=== PATIENT | female | born 1990 | race Caucasian/White ===

== ENCOUNTER 2021-01-13 09:36 | Emergency (ER) | payer MEDICAID ==
[~2021-01-13] VITALS: Ht 162.6 cm; Wt 47.3 kg
[2021-01-13 09:52] VITALS: BP 158/71; Ht 162.6 cm; Wt 47.3 kg
[2021-01-13] MEDS ORDERED: NAPROSYN500 MG PO (12:50)
== END 2021-01-13 12:59 | disposition home or self-care (01) ==
LOC: D.ER 09:36
DX: S76.812A Strain of other specified muscles, fascia and tendons at thigh level, left thigh, initial encounter (principal); M25.562 Pain in left knee; X58.XXXA Exposure to other specified factors, initial encounter